=== PATIENT | female | born 1955 | race Caucasian/White ===

== ENCOUNTER 2022-03-26 09:02 | Emergency (ER) | payer MEDICARE, BC ==
[2022-03-26 09:23] VITALS: BP 157/97; PULSE 83
[2022-03-26 09:54] LABS: CORONAVIRUS COVID-19 NAA NEGATIVE (NEGATIVE)
== END 2022-03-26 10:14 | disposition home or self-care (01) ==
LOC: JP.ED 09:02
DX: J40 Bronchitis, not specified as acute or chronic (principal); I10 Essential (primary) hypertension; Z79.899 Other long term (current) drug therapy; Z20.822 Contact with and (suspected) exposure to COVID-19
CPT/HCPCS: 0241U; 99283